=== PATIENT | female | born 1985 | race Caucasian/White ===

== ENCOUNTER 2018-03-03 12:40 | Emergency (ER) | payer BC ==
[~2018-03-03] VITALS: Ht 165.1 cm; Wt 118.0 kg
[2018-03-03] MEDS ORDERED: LORazepam 2 mg/ml vial IV ONE (13:50)
[2018-03-03] MEDS ORDERED: meclizine 12.5mg tablet PO ONE (13:50)
[2018-03-03] MEDS ORDERED: ondansetron/PF 4mg/2ml inj IV ONE (13:50)
[2018-03-03] MEDS ORDERED: normal saline 1000ML IV soln IVB ONE (13:50)
[2018-03-03] MEDS ORDERED: MECL-111 PO (14:35)
[2018-03-03] MEDS ORDERED: LORA1TAB PO (14:35)
[2018-03-03] MEDS ORDERED: ONDA4TAB12 PO (14:35)
[2018-03-03 14:45] VITALS: BP 120/74
== END 2018-03-03 15:02 | disposition home or self-care (01) ==
LOC: ER 12:41
DX: R42 Dizziness and giddiness (principal); R11.2 Nausea with vomiting, unspecified; Z88.8 Allergy status to other drugs, medicaments and biological substances
CPT/HCPCS: 96361; 96374; 96375; 99284; J2060; J2405; J7030; J8597

== ENCOUNTER 2020-10-25 08:05 | Inpatient (IN) | payer BC ==
[~2020-10-25] VITALS: Ht 165.1 cm; Wt 118.9 kg
[~2020-10-25 08:05] MED LIST: MECL-159 PO; ONDA4TAB12 PO
[2020-10-25] MEDS ORDERED: acetaminophen 650mg rectal suppository RC STA (09:38)
[2020-10-25] MEDS ORDERED: normal saline 1000ML IV soln IV ONE (09:40)
[2020-10-25] MEDS ORDERED: acetaminophen 325mg tablet PO ONE (09:55)
[2020-10-25 10:02] LABS: BASOPHILS % (AUTO) 0.3 % (0-1); EOSINOPHILS % (AUTO) 0.7 % (0-6); HEMATOCRIT 34.6 % (35.0-45.0); HEMOGLOBIN 11.8 g/dl (12.0-16.0); LYMPHOCYTES # (AUTO) 0.5 X10'3 (1.1-4.8); LYMPHOCYTES % (AUTO) 9.7 % (21-51); MEAN CORPUSCULAR HEMOGLOBIN 29.6 PG (27.0-31.0); MEAN CORPUSCULAR HGB CONC 34.1 g/dL (33.0-36.5); MEAN CORPUSCULAR VOLUME 86.6 FL (78-98); MONOCYTES # (AUTO) 0.3 X10'3 (0-0.9); NEUTROPHILS # (AUTO) 4.6 X10'3 (1.8-7.7); NEUTROPHILS % (AUTO) 84.3 % (42-75); PLATELET COUNT 222 X10'3 (140-440); RED BLOOD COUNT 3.99 X10'6 (4.20-5.60); WHITE BLOOD COUNT 5.4 X10'3 (4.5-11.0)
[2020-10-25 10:43] LABS: ALANINE AMINOTRANSFERASE 30 U/L (12-78); ALBUMIN 2.5 G/DL (3.4-5.0); ALBUMIN/GLOBULIN RATIO 0.6 (1.1-1.5); ALKALINE PHOSPHATASE 58 IU/L (46-116); ANION GAP 10 (8-16); ASPARTATE AMINO TRANSFERASE 41 U/L (10-37); BILIRUBIN,TOTAL 0.3 MG/DL (0.1-1.0); BLOOD UREA NITROGEN 9 MG/DL (7-18); BUN/CREATININE RATIO 10.6 (6.6-38.0); CALCIUM 7.8 MG/DL (8.5-10.1); CHLORIDE 98 MMOL/L (99-107); CREATININE 0.85 MG/DL (0.40-0.90); GLUCOSE 113 MG/DL (70-104); SODIUM 135 MMOL/L (135-145); TOTAL CARBON DIOXIDE 27.2 MMOL/L (24-32); TOTAL PROTEIN 6.6 G/DL (6.4-8.2); eGFR 76 ML/MIN
[2020-10-25 10:48] LABS: POTASSIUM 2.6 MMOL/L (3.5-5.1)
--- NOTE | 2020-10-25 10:49 | NUR ---
LAB CALLED K IS 2.6 INFORMED ABBIE DELACRUZ
[2020-10-25 10:51] LABS: C-REACTIVE PROTEIN 28.31 MG/DL (0.0-0.5)
[2020-10-25] MEDS ORDERED: dexamethasone sod phosphate 10mg/ml inj IV STA (10:51)
[2020-10-25] MEDS ORDERED: potassium chloride 10mEq ER tablet PO STA (10:51)
[2020-10-25 10:54] LABS: D-DIMER 2.71 MG/L FEU (0-0.50)
[2020-10-25] MEDS ORDERED: potassium Cl 10 mEq/100mL bag IV ONE (10:55)
[2020-10-25] MEDS ORDERED: azithromycin/NS 500mg/250ml 250 ML IV ONE (11:55)
[2020-10-25] MEDS ORDERED: CefTRIAXone/D5W-Rocephin 1gm 50 ML IV ONE (11:55)
[2020-10-25 11:56] LABS: URINE HCG NEGATIVE (NEG)
[2020-10-25 12:01] LABS: CLARITY,URINE SLIGHTLY CLOUDY (Clear); COLOR,URINE YELLOW (Yellow); GLUCOSE, URINE NEGATIVE (Neg); KETONES,URINE NEGATIVE (Neg); LEUKOCYTE ESTERASE ,URINE NEGATIVE (Neg); NITRITES, URINE NEGATIVE (Neg); OCCULT BLOOD,URINE SMALL (Neg); PH,URINE 6.5 (4.8-8.0); PROTEIN,URINE 100 mg/dl (Neg); UA COLLECTION TYPE CLN CATCH MIDSTREAM
[2020-10-25 12:03] LABS: MUCUS STRANDS FEW /LPF (Neg); SQUAMOUS EPITHELIAL CELL,UR MODERATE /LPF (FEW); TRANSITIONAL EPI CELLS,URINE FEW /HPF; WBC,URINE 0-4 /HPF (0-4)
[2020-10-25 12:04] LABS: AMORPHOUS URATES 1+; BACTERIA,URINE FEW /HPF (Neg); COARSE GRANULAR CAST 0-3 /LPF (NEGATIVE)
[2020-10-25] MEDS ORDERED: acetaminophen 325mg tablet PO PRN (12:15)
[2020-10-25] MEDS ORDERED: magnesium hydroxide 30ml (MOM) UD suspension PO PRN (12:15)
[2020-10-25] MEDS ORDERED: mag hydrox/Alum hydrox/simeth 30ml oral suspension PO PRN (12:15)
[2020-10-25] MEDS ORDERED: ondansetron/PF 4mg/2ml inj IV PRN (12:15)
[2020-10-25] MEDS ORDERED: BUPR300T53 PO (14:07)
[2020-10-25] MEDS ORDERED: CITA20TA28 PO (14:07)
[2020-10-25] MEDS ORDERED: LEVO75TA PO (14:07)
[2020-10-25] MEDS ORDERED: normal saline 1000ml 1,000 ML IV SCH (15:00)
--- NOTE | 2020-10-25 15:07 | NUR ---
PT ASSISTED TO BR, NOTED SPO2 ON 4L IS 88%. INCREASED TO 5L/NC, PT GIVEN INCENTIVE SPIROMETER, INSTRUCTED ON USE. RT PG'ED FOR NEB TXMT.
--- NOTE | 2020-10-25 15:21 | NUR ---
Sp02 88% on 5L, Dr. Espinal pg'ed. Awaiting RT
[2020-10-25] MEDS: albuterol 2.5 MG/3 ML nebule NEB SCH ×3 (15:27→23:18)
--- NOTE | 2020-10-25 15:32 | NUR ---
RT at bedside to do neb. Dr. Espinal notified of pt status, orders for me to order a CTA chest PE.
[2020-10-25] MEDS ORDERED: iohexol 350MG/ML 100ml bottle IV ONE (15:33)
[2020-10-25] MEDS ORDERED: heparin 10,000 units/1 ML INJ IV ONE (17:15)
[2020-10-25] MEDS ORDERED: potassium Cl 20 mEq SR tablet PO PRN (17:20)
[2020-10-25] MEDS ORDERED: potassium Cl 40MEQ/1/2NS 520ml 520 ML IV PRN (17:20)
[2020-10-25] MEDS ORDERED: magnesium 4gm in 100ml NS 100 ML IV PRN (17:20)
[2020-10-25] MEDS ORDERED: magnesium Cl slow-release 64mg tablet PO PRN (17:20)
--- NOTE | 2020-10-25 17:37 | NUR ---
I have spoken with Dr. Espinal on the phone, we will start heparin and recheck K and Mg now, I have stopped IV fluids per MD request.
[2020-10-25 17:58] LABS: MAGNESIUM 2.1 MG/DL (1.5-2.4)
[2020-10-25 17:59] LABS: PARTIAL THROMBOPLASTIN TIME 31 SECONDS (22-32)
[2020-10-25] MEDS: heparin 25,000 UNIT/250ml bag 250 ML IV SCH (18:00)
[2020-10-25 18:02] LABS: POTASSIUM 2.9 MMOL/L (3.5-5.1)
[2020-10-25 20:00] VITALS: BP 142/75
[2020-10-25] MEDS ORDERED: heparin, porcine 5000 units/ml vial SQ SCH (20:00)
[2020-10-25] MEDS: buPROPion SR 150mg tablet PO SCH (20:24)
[2020-10-25] MEDS: potassium Cl 20 mEq SR tablet PO PRN (21:32)
[2020-10-25] MEDS: K and/or MAG REPLACEMENT MC SCH (21:47)
[2020-10-25 22:00] VITALS: BP 112/52
[2020-10-26] MEDS: potassium Cl 20 mEq SR tablet PO PRN (01:35)
[2020-10-26 02:00] VITALS: BP 121/74
[2020-10-26] MEDS: albuterol 2.5 MG/3 ML nebule NEB SCH ×6 (02:46→23:03)
[2020-10-26] MEDS: heparin 25,000 UNIT/250ml bag 250 ML IV SCH ×3 (04:43→21:37)
--- NOTE | 2020-10-26 06:27 | NUR ---
Problems reprioritized. Patient report given, questions answered & plan of care reviewed with [employer]. Addendum: 10/26/20 at 0627 by Gurinder oRbertson RN Amended: Links added.
--- NOTE | 2020-10-26 06:30 | NUR ---
Patient in room PCU 3021. I have received report from Andrae FOUNTAIN and had the opportunity to ask questions and assume patient care.
[2020-10-26 06:39] LABS: BASOPHILS % (AUTO) 0.2 % (0-1); EOSINOPHILS % (AUTO) 0.1 % (0-6); HEMATOCRIT 30.1 % (35.0-45.0); HEMOGLOBIN 10.3 g/dl (12.0-16.0); LYMPHOCYTES # (AUTO) 0.9 X10'3 (1.1-4.8); LYMPHOCYTES % (AUTO) 14.4 % (21-51); MEAN CORPUSCULAR HEMOGLOBIN 29.8 PG (27.0-31.0); MEAN CORPUSCULAR HGB CONC 34.3 g/dL (33.0-36.5); MEAN CORPUSCULAR VOLUME 86.9 FL (78-98); MEAN PLATELET VOLUME 8.8 FL (7.4-10.4); MONOCYTES # (AUTO) 0.5 X10'3 (0-0.9); MONOCYTES % (AUTO) 8.3 % (2-12); NEUTROPHILS # (AUTO) 4.6 X10'3 (1.8-7.7); PLATELET COUNT 200 X10'3 (140-440); RED BLOOD COUNT 3.46 X10'6 (4.20-5.60); RED CELL DISTRIBUTION WIDTH 13.8 % (11.5-14.5)
[2020-10-26 06:48] LABS: ALBUMIN 2.5 G/DL (3.4-5.0); ANION GAP 9 (8-16); BLOOD UREA NITROGEN 7 MG/DL (7-18); BUN/CREATININE RATIO 9.3 (6.6-38.0); CALCIUM 8.3 MG/DL (8.5-10.1); CHLORIDE 104 MMOL/L (99-107); CREATININE 0.75 MG/DL (0.40-0.90); GLUCOSE 169 MG/DL (70-104); MAGNESIUM 2.5 MG/DL (1.5-2.4); POTASSIUM 3.5 MMOL/L (3.5-5.1); SODIUM 142 MMOL/L (135-145); TOTAL CARBON DIOXIDE 28.6 MMOL/L (24-32); eGFR 88 ML/MIN
[2020-10-26 07:00] VITALS: BP 141/78
--- NOTE | 2020-10-26 07:15 | NUR ---
DR. Teddy gonzalez. Denise Jang. 3022. FYI patient had critical PTT of 119. Heparin gtt held for 120 min @ 0700, then decrease rate by 3 u/kg/hr, and ptt in 2 hr, per protocol. Ector [id number]
[2020-10-26] MEDS: K and/or MAG REPLACEMENT MC SCH ×2 (08:00→20:00)
[2020-10-26] MEDS: levoTHYROXINE 75mcg tablet PO SCH (08:53)
[2020-10-26] MEDS: azithromycin 250mg tablet PO SCH (08:53)
[2020-10-26] MEDS: buPROPion SR 150mg tablet PO SCH ×2 (08:53→19:46)
[2020-10-26] MEDS: citalopram 20mg tablet PO SCH (08:53)
[2020-10-26] MEDS: dexamethasone inj 6 MG in normal saline 50ml IV soln 50 ML IV SCH (08:54)
[2020-10-26] MEDS: CefTRIAXone/D5W-Rocephin 1gm 50 ML IV SCH (08:58)
[2020-10-26 11:00] VITALS: BP 138/83
[2020-10-26 15:00] VITALS: BP 140/82
[2020-10-26 18:00] VITALS: BP 116/67
--- NOTE | 2020-10-26 18:41 | NUR ---
Problems reprioritized. Patient report given, questions answered & plan of care reviewed with Darin FOUNTAIN.
--- NOTE | 2020-10-26 18:44 | NUR ---
Patient in room PCU 3021. I have received report from NABEEL FOUNTAIN and had the opportunity to ask questions and assume patient care.
[2020-10-26] MEDS: lactobacillus rhamnosus 10,000 MMU CELLS/CAPSULE PO SCH (19:47)
[2020-10-26 22:00] VITALS: BP 134/82
--- NOTE | 2020-10-26 23:00 | NUR ---
DVT PTT 47 WITHIN NORMAL RANGE NO CHANGE IN RATE OF HEPARIN DRIP.
[2020-10-27 02:00] VITALS: BP 141/85
[2020-10-27] MEDS: albuterol 2.5 MG/3 ML nebule NEB SCH ×6 (03:19→23:11)
--- NOTE | 2020-10-27 06:27 | NUR ---
Problems reprioritized. Patient report given, questions answered & plan of care reviewed with MISSY FOUNTAIN.
[2020-10-27 07:00] VITALS: BP 129/78
[2020-10-27 07:04] LABS: BASOPHILS % (AUTO) 0.2 % (0-1); EOSINOPHILS % (AUTO) 0 % (0-6); HEMATOCRIT 30.1 % (35.0-45.0); HEMOGLOBIN 10.3 g/dl (12.0-16.0); LYMPHOCYTES # (AUTO) 1.4 X10'3 (1.1-4.8); LYMPHOCYTES % (AUTO) 14.6 % (21-51); MEAN CORPUSCULAR HEMOGLOBIN 29.7 PG (27.0-31.0); MEAN CORPUSCULAR HGB CONC 34.2 g/dL (33.0-36.5); MEAN CORPUSCULAR VOLUME 86.9 FL (78-98); MEAN PLATELET VOLUME 8.8 FL (7.4-10.4); MONOCYTES # (AUTO) 0.9 X10'3 (0-0.9); MONOCYTES % (AUTO) 9.5 % (2-12); NEUTROPHILS # (AUTO) 7.2 X10'3 (1.8-7.7); NEUTROPHILS % (AUTO) 75.7 % (42-75); PLATELET COUNT 260 X10'3 (140-440); RED BLOOD COUNT 3.46 X10'6 (4.20-5.60); WHITE BLOOD COUNT 9.6 X10'3 (4.5-11.0)
[2020-10-27 07:06] LABS: ALBUMIN 2.5 G/DL (3.4-5.0); ANION GAP 10 (8-16); BLOOD UREA NITROGEN 12 MG/DL (7-18); BUN/CREATININE RATIO 16.7 (6.6-38.0); CALCIUM 8.5 MG/DL (8.5-10.1); CHLORIDE 105 MMOL/L (99-107); CREATININE 0.72 MG/DL (0.40-0.90); GLUCOSE 138 MG/DL (70-104); MAGNESIUM 2.4 MG/DL (1.5-2.4); SODIUM 144 MMOL/L (135-145); TOTAL CARBON DIOXIDE 29.2 MMOL/L (24-32); eGFR > 90 ML/MIN
[2020-10-27] MEDS: CefTRIAXone/D5W-Rocephin 1gm 50 ML IV SCH (07:16)
[2020-10-27] MEDS: buPROPion SR 150mg tablet PO SCH ×2 (07:26→21:27)
[2020-10-27] MEDS: citalopram 20mg tablet PO SCH (07:27)
[2020-10-27] MEDS: lactobacillus rhamnosus 10,000 MMU CELLS/CAPSULE PO SCH ×2 (07:27→21:27)
[2020-10-27] MEDS: azithromycin 250mg tablet PO SCH (07:28)
[2020-10-27] MEDS: levoTHYROXINE 75mcg tablet PO SCH (07:29)
[2020-10-27] MEDS: potassium Cl 20 mEq SR tablet PO PRN ×2 (07:31→16:21)
[2020-10-27 07:36] LABS: GIANT PLATELET FEW; LARGE PLATELETS FEW; PLATELET ESTIMATE NORMAL; TOTAL CELLS COUNTED 100
[2020-10-27] MEDS: K and/or MAG REPLACEMENT MC SCH ×2 (08:00→20:00)
[2020-10-27] MEDS: dexamethasone inj 6 MG in normal saline 50ml IV soln 50 ML IV SCH (09:49)
[2020-10-27 11:00] VITALS: BP 125/72
[2020-10-27] MEDS: heparin 25,000 UNIT/250ml bag 250 ML IV SCH (11:33)
[2020-10-27 15:00] VITALS: BP 128/86
[2020-10-27 18:00] VITALS: BP 120/77
--- NOTE | 2020-10-27 18:20 | NUR ---
Patient in room PCU 3021. I have received report from ESSIE oRbbins and had the opportunity to ask questions and assume patient care.
--- NOTE | 2020-10-27 18:30 | NUR ---
Problems reprioritized. Patient report given, questions answered & plan of care reviewed with ESSIE Barbosa.
[2020-10-27] MEDS: heparin 10,000 units/1 ML INJ IV PRN (19:49)
[2020-10-27 22:00] VITALS: BP 128/73
[2020-10-28 02:00] VITALS: BP 148/89
[2020-10-28] MEDS: heparin 25,000 UNIT/250ml bag 250 ML IV SCH ×2 (02:30→16:45)
[2020-10-28] MEDS: albuterol 2.5 MG/3 ML nebule NEB SCH ×6 (03:04→23:15)
[2020-10-28 03:19] LABS: BASOPHILS # (AUTO) 0.1 X10'3 (0-0.2); BASOPHILS % (AUTO) 0.7 % (0-1); EOSINOPHILS % (AUTO) 0.5 % (0-6); HEMATOCRIT 31.2 % (35.0-45.0); HEMOGLOBIN 10.2 g/dl (12.0-16.0); LYMPHOCYTES # (AUTO) 1.5 X10'3 (1.1-4.8); LYMPHOCYTES % (AUTO) 17.8 % (21-51); MEAN CORPUSCULAR HEMOGLOBIN 28.8 PG (27.0-31.0); MEAN CORPUSCULAR HGB CONC 32.7 g/dL (33.0-36.5); MEAN CORPUSCULAR VOLUME 88.1 FL (78-98); MEAN PLATELET VOLUME 8.9 FL (7.4-10.4); MONOCYTES # (AUTO) 0.8 X10'3 (0-0.9); NEUTROPHILS # (AUTO) 6.1 X10'3 (1.8-7.7); PLATELET COUNT 258 X10'3 (140-440); RED BLOOD COUNT 3.54 X10'6 (4.20-5.60); RED CELL DISTRIBUTION WIDTH 13.9 % (11.5-14.5); WHITE BLOOD COUNT 8.4 X10'3 (4.5-11.0)
[2020-10-28 03:37] LABS: ALBUMIN 2.6 G/DL (3.4-5.0); ANION GAP 10 (8-16); BLOOD UREA NITROGEN 12 MG/DL (7-18); BUN/CREATININE RATIO 18.5 (6.6-38.0); CALCIUM 8.5 MG/DL (8.5-10.1); CHLORIDE 105 MMOL/L (99-107); CREATININE 0.65 MG/DL (0.40-0.90); GLUCOSE 127 MG/DL (70-104); MAGNESIUM 2.5 MG/DL (1.5-2.4); POTASSIUM 3.6 MMOL/L (3.5-5.1); SODIUM 143 MMOL/L (135-145); TOTAL CARBON DIOXIDE 27.9 MMOL/L (24-32); eGFR > 90 ML/MIN
[2020-10-28 06:00] VITALS: BP 118/67
--- NOTE | 2020-10-28 06:05 | NUR ---
Problems reprioritized. Patient report given, questions answered & plan of care reviewed with ESSIE Robbins.
[2020-10-28] MEDS: K and/or MAG REPLACEMENT MC SCH ×2 (08:00→20:00)
[2020-10-28] MEDS: buPROPion SR 150mg tablet PO SCH ×2 (09:23→19:36)
[2020-10-28] MEDS: levoTHYROXINE 75mcg tablet PO SCH (09:23)
[2020-10-28] MEDS: azithromycin 250mg tablet PO SCH (09:23)
[2020-10-28] MEDS: lactobacillus rhamnosus 10,000 MMU CELLS/CAPSULE PO SCH ×2 (09:24→19:35)
[2020-10-28] MEDS: citalopram 20mg tablet PO SCH (09:28)
[2020-10-28] MEDS: dexamethasone inj 6 MG in normal saline 50ml IV soln 50 ML IV SCH (09:29)
[2020-10-28] MEDS: CefTRIAXone/D5W-Rocephin 1gm 50 ML IV SCH (10:21)
[2020-10-28 11:00] VITALS: BP 128/83
[2020-10-28 15:00] VITALS: BP 126/73
[2020-10-28 18:00] VITALS: BP 125/71
--- NOTE | 2020-10-28 18:00 | NUR ---
Problems reprioritized. Patient report given, questions answered & plan of care reviewed with ESSIE Barbosa.
[2020-10-28 22:00] VITALS: BP 133/61
[2020-10-29 02:00] VITALS: BP 108/70
[2020-10-29] MEDS: albuterol 2.5 MG/3 ML nebule NEB SCH ×3 (03:11→11:00)
[2020-10-29 05:27] LABS: HEMOGLOBIN 11.1 g/dl (12.0-16.0); MEAN CORPUSCULAR HGB CONC 33.5 g/dL (33.0-36.5); MEAN PLATELET VOLUME 8.4 FL (7.4-10.4)
[2020-10-29 05:29] LABS: BASOPHILS % (AUTO) 0.3 % (0-1); EOSINOPHILS % (AUTO) 0.4 % (0-6); HEMATOCRIT 33.1 % (35.0-45.0); LYMPHOCYTES % (AUTO) 21.5 % (21-51); MEAN CORPUSCULAR HEMOGLOBIN 29.2 PG (27.0-31.0); MEAN CORPUSCULAR VOLUME 87.3 FL (78-98); MONOCYTES # (AUTO) 0.5 X10'3 (0-0.9); MONOCYTES % (AUTO) 5.8 % (2-12); NEUTROPHILS # (AUTO) 6.8 X10'3 (1.8-7.7); PLATELET COUNT 345 X10'3 (140-440); RED CELL DISTRIBUTION WIDTH 14.2 % (11.5-14.5); WHITE BLOOD COUNT 9.4 X10'3 (4.5-11.0)
[2020-10-29 05:31] LABS: ALBUMIN 2.8 G/DL (3.4-5.0); ANION GAP 9 (8-16); BLOOD UREA NITROGEN 19 MG/DL (7-18); BUN/CREATININE RATIO 27.5 (6.6-38.0); CALCIUM 8.8 MG/DL (8.5-10.1); CHLORIDE 103 MMOL/L (99-107); CREATININE 0.69 MG/DL (0.40-0.90); GLUCOSE 109 MG/DL (70-104); MAGNESIUM 2.4 MG/DL (1.5-2.4); POTASSIUM 3.8 MMOL/L (3.5-5.1); SODIUM 140 MMOL/L (135-145); TOTAL CARBON DIOXIDE 28.2 MMOL/L (24-32); eGFR > 90 ML/MIN
[2020-10-29] MEDS: heparin 10,000 units/1 ML INJ IV PRN (06:06)
[2020-10-29 06:33] LABS: PLATELET ESTIMATE NORMAL; POLYCHROMASIA FEW; TOTAL CELLS COUNTED 100
--- NOTE | 2020-10-29 06:45 | NUR ---
Problems reprioritized. Patient report given, questions answered & plan of care reviewed with ESSIE Alcaraz.
[2020-10-29 07:35] VITALS: BP 120/76
[2020-10-29] MEDS: K and/or MAG REPLACEMENT MC SCH (08:00)
[2020-10-29] MEDS: citalopram 20mg tablet PO SCH (08:12)
[2020-10-29] MEDS: buPROPion SR 150mg tablet PO SCH (08:12)
[2020-10-29] MEDS: levoTHYROXINE 75mcg tablet PO SCH (08:12)
[2020-10-29] MEDS: azithromycin 250mg tablet PO SCH (08:12)
[2020-10-29] MEDS: lactobacillus rhamnosus 10,000 MMU CELLS/CAPSULE PO SCH (08:12)
[2020-10-29] MEDS: dexamethasone inj 6 MG in normal saline 50ml IV soln 50 ML IV SCH (08:19)
[2020-10-29] MEDS: CefTRIAXone/D5W-Rocephin 1gm 50 ML IV SCH (09:06)
[2020-10-29] MEDS: heparin 25,000 UNIT/250ml bag 250 ML IV SCH (09:15)
[2020-10-29] MEDS ORDERED: CEFD300C3 PO (10:36)
[2020-10-29] MEDS ORDERED: APIX5TAB3 PO (10:37)
--- NOTE | 2020-10-29 11:22 | NUR ---
PAGER ID: [phone] MESSAGE: [phone] EMILIA S: PATIENT REQUESTING A WORK NOTE, WONDERING WHEN SHE CAN GO BACK TO WORK. THANKSJOSEPH
--- NOTE | 2020-10-29 13:09 | NUR ---
PATIENT STABLE AND APPROPRIATE FOR DISCHARGE HOME. IV X2 AND WATER SERVER REMOVED. ALL BELONGINGS TAKEN FROM ROOM. NEW PRESCRIPTIONS SENT TO [facility] IN [place]. PATIENT IS AWARE OF NEXT DUE DOSES ON ALL MEDICATIONS. ALL DISCHARGE INSTRUCTIONS AND EDUCATION GIVEN AND REVIEWED WITH PATIENT, ALL QUESTIONS ANSWERED. A COUPON FOR ELIQUIS WAS INCLUDED IN DISCHARGE PACKET WELL.
== END 2020-10-29 13:53 | disposition home or self-care (01) | DRG 871 ==
LOC: ER 08:06 → ED HOLD 12:12 → PCU 3S 19:20
PROVIDERS: ADMIT Family Medicine; ATTEND Family Medicine
DX: A41.9 Sepsis, unspecified organism (principal); J15.9 Unspecified bacterial pneumonia; J96.01 Acute respiratory failure with hypoxia; Z68.41 Body mass index [BMI] 40.0-44.9, adult; E03.9 Hypothyroidism, unspecified; E66.01 Morbid (severe) obesity due to excess calories; E87.6 Hypokalemia; F32.9 Major depressive disorder, single episode, unspecified; G47.30 Sleep apnea, unspecified; Z20.822 Contact with and (suspected) exposure to COVID-19; Z79.01 Long term (current) use of anticoagulants; Z79.890 Hormone replacement therapy; Z79.899 Other long term (current) drug therapy; Z88.8 Allergy status to other drugs, medicaments and biological substances
CPT/HCPCS: 36415; 71045; 71275; 76937; 80048; 80053; 81001; 81025; 83605; 83735; 84132; 84145; 84443; 85007; 85025; 85379; 85730; 86140; 87040; 87081; 87502; 87503; 87635; 93970; 94640; 94760; 96374; 97116; 97161; 97530; 99285; C9803; G0378; J0456; J0696; J1100; J1644; J3480; J7030; Q9967